=== PATIENT | female | born 1970 | race Caucasian/White ===

== ENCOUNTER → 2021-05-17 14:00 | Outpatient (CLI) | payer BC, SELFPAY ==
[2021-05-17 15:27] LABS: Absolute Lymphocyte Count 1.26 X10^3/uL (0.83-4.51); Absolute Neutrophil Count 3.7 X10^3/uL (2.0-7.7); Basophil# 0.03 X10^3/uL; Basophil% 0.5 % (0-1); Eosinophils% 1.8 % (0-5); Hematocrit 38.8 % (37-47); Hemoglobin 12.6 g/dL (12.0-15.0); Lymphocyte # 1.26 X10^3/ul (0.83-4.51); Mean Corp Hgb Conc 32.5 g/dL (32-36); Mean Corpuscular Hgb 31.2 pg (27.0-32.0); Mean Platelet Vol. 10.4 fl (6.2-12.0); Monocyte# 0.37 X10^3/uL; Monocyte% 6.7 % (0-10); NRBC Flagged by Analyzer 0 % (0-5); Neutrophil # 3.71 X10^3/uL (2.7-7.7); Neutrophil % 67.6 % (47-70); Platelet Count 297 K/mm3 (150-450); RBC Distribution Width SD 46.2 fl (35.1-43.9); Red Blood Count 4.04 M/mm3 (4.2-5.4); White Blood Count 5.5 K/mm3 (4.4-11.0)
[2021-05-17 16:35] LABS: AST(SGOT) 21 U/L (15-37); Alanine Aminotransfer ALT/SGPT 21 U/L (13-56); Albumin, Serum 3.7 g/dL (3.2-5.0); Alkaline Phosphatase 54 U/L (45-117); Anion Gap 8 (5-15); BUN 10 mg/dL (7-18); BUN/Creat Ratio 12.5 RATIO (10-20); Bilirubin, Direct 0.08 mg/dL (0.00-0.30); Calcium,Total 8.5 mg/dL (8.5-10.1); Chloride 104 mmol/L (98-107); EST Glomerular Filtration Rate 81 mL/min (>60); Est Glom Filt Rate - Afr Amer 98 mL/min (>60); Globulin 3.2 g/dL (2.2-4.2); Glucose 123 mg/dL (74-106); Potassium 3.5 mmol/L (3.5-5.1); Protein, Total 6.9 g/dL (6.4-8.2); Sodium Level 139 mmol/L (136-145)
[2021-05-18 09:31] LABS: Hepatitis B Surface Antibody Non-Reactive; Hepatitis B Surface Antigen Non-Reactive (Nonreactive); Hepatitis C Antibody Non-Reactive (Nonreactive)
[2021-05-20 03:07] LABS: QNTFERON TB Mitogen Value > 10.00 IU/mL (.); QNTFERON TB Nil Value 0 IU/mL (.); QNTFERON TB1+ Ag Value 0 IU/mL (.); QNTFERON TB2+ Ag Value 0 IU/mL (.)
[2021-05-20 10:40] LABS: Hepatitis B Core Ab Total Negative (Negative); QNTIFERON TB Positive Criteria Negative (Negative)
== END ==
PROVIDERS: PCP Family Medicine; Referring Provider Dermatology; Visit Provider Dermatology
DX: L71.0 Perioral dermatitis (principal); L40.0 Psoriasis vulgaris
CPT/HCPCS: 36415; 80048; 80076; 85025; 86480; 86704; 86706; 86803; 87340

== ENCOUNTER → 2022-10-19 | Outpatient (CLI) | payer BC, SELFPAY ==
[2022-10-23 08:07] LABS: QNTFERON TB Mitogen Value > 10.00 IU/mL (.); QNTFERON TB Nil Value 0.01 IU/mL (.); QNTFERON TB1+ Ag Value 0.01 IU/mL (.); QNTFERON TB2+ Ag Value 0 IU/mL (.)
[2022-10-23 11:19] LABS: QNTIFERON TB Positive Criteria Negative (Negative)
== END | disposition home or self-care (01) ==
LOC: LABSPEC 09:40
PROVIDERS: PCP Family Medicine; Visit Provider Dermatology
DX: L40.0 Psoriasis vulgaris (principal); L40.59 Other psoriatic arthropathy; L71.0 Perioral dermatitis; Z79.899 Other long term (current) drug therapy
CPT/HCPCS: 36415; 86480

== ENCOUNTER → 2023-01-03 | Outpatient (CLI) | payer BC, SELFPAY ==
--- NOTE | 2023-01-03 07:50 | BI_ITS ---
MAMMOGRAPHY - BILATERAL SCREENING REASON FOR EXAM: Female, 52 years old. Routine annual screening examination. PERTINENT HISTORY: Non-contributory. TECHNIQUE: Digital bilateral breast chuy (3D mammographic acquisition) in the CC and MLO projections. 2-D mediolateral oblique (MLO) and craniocaudad (CC) views of both breasts were obtained. CAD: Full Field Digital Mammography with Computer Added Detection was performed. COMPARISON: Comparison is made with prior outside examination 11/08/2021 and 07/29/2020. FINDINGS: Breast Composition: There are scattered areas of fibroglandular density. There are no dominant masses or suspicious calcifications. No other significant abnormalities are identified. There has been no significant change since the prior study. BI/SCRN MAMM (CAD)W/CHUY BILAT IMPRESSION: Stable bilateral screening mammogram. Yearly follow-up mammogram recommended. (A) ASSESSMENT CATEGORY: BIRADS Category 1: Negative. A letter regarding these results will be sent to the patient by the facility within 30 days. Approximately 10% of breast cancers are not detected by mammography. A normal mammogram should not delay biopsy of a clinically suspicious abnormality. [id number] Electronically Signed: Ernst Gamino MD at 14:51 EST ,
[2023-01-03 08:28] LABS: Absolute Neutrophil Count 2.1 X10^3/uL (2.0-7.7); Basophil# 0.03 X10^3/uL; Basophil% 0.8 % (0-1); Eosinophil# 0.16 X10^3/uL; Eosinophils% 4.4 % (0-5); Hematocrit 39.7 % (37-47); Hemoglobin 13.1 g/dL (12.0-15.0); Lymphocyte % 24.7 % (19-41); Mean Corpuscular Volume 97.1 fL (81-99); Mean Platelet Vol. 10.2 fl (6.2-12.0); Monocyte# 0.48 X10^3/uL; Monocyte% 13.2 % (0-10); NRBC Flagged by Analyzer 0 % (0-5); Neutrophil # 2.06 X10^3/uL (2.7-7.7); Neutrophil % 56.6 % (47-70); Platelet Count 280 K/mm3 (150-450); RBC Distribution Width CV 13.4 % (11.6-14.6); RBC Distribution Width SD 47.8 fl (35.1-43.9); Red Blood Count 4.09 M/mm3 (4.2-5.4); White Blood Count 3.6 K/mm3 (4.4-11.0)
[2023-01-03 08:49] LABS: Hemoglobin A1c 4.8 % (3.8-5.6)
[2023-01-03 09:00] LABS: AST(SGOT) 22 U/L (15-37); Alanine Aminotransfer ALT/SGPT 26 U/L (13-56); Albumin, Serum 3.5 g/dL (3.2-5.0); Alkaline Phosphatase 45 U/L (45-117); Anion Gap 5 (5-15); BUN 14 mg/dL (7-18); BUN/Creat Ratio 21.1 RATIO (10-20); Calcium,Total 8.8 mg/dL (8.5-10.1); Chloride 107 mmol/L (98-107); Creatinine, Serum 0.66 mg/dL (0.55-1.02); EST Glomerular Filtration Rate 100 mL/min (>60); Est Glom Filt Rate - Afr Amer 121 mL/min (>60); Globulin 3.4 g/dL (2.2-4.2); Glucose 92 mg/dL (74-106); Potassium 4.1 mmol/L (3.5-5.1); Protein, Total 6.9 g/dL (6.4-8.2); Sodium Level 141 mmol/L (136-145)
[2023-01-05 17:18] LABS: Vitamin D 1,25-Dihydroxy 30.5 pg/mL (24.8-81.5)
== END | disposition home or self-care (01) ==
PROVIDERS: PCP Family Medicine; Referring Provider Registered Nurse; Visit Provider Registered Nurse
DX: Z12.31 Encounter for screening mammogram for malignant neoplasm of breast (principal); Z01.419 Encounter for gynecological examination (general) (routine) without abnormal findings
CPT/HCPCS: 36415; 77063; 77067; 80053; 82652; 83036; 85025

== ENCOUNTER 2023-02-22 10:20 | Day surgery (SDC) | payer BC, SELFPAY ==
[2023-02-22] VITALS (7 sets, daily range): BP systolic 93–109; BP diastolic 46–85; PULSE 72–85; RESP 14–18; TEMP 36.6–36.8; O2SAT 98–99; BMI 25.2
[2023-02-22] MEDS: Lactated Ringers 1,000 ML 15 ML IV (10:38)
--- NOTE | 2023-02-22 11:28 | HP.PCM_ITS ---
[facility] - General General Date of Admission: 02/22/23 Date of Service: 02/22/23 Chief Complaint: Screening colonoscopy HPI Narrative KEREN WORLEY, is a 52 F who presents today for screening colonoscopy. She denies abdominal pain. She denies any nausea, vomiting or diarrhea. She had a colonoscopy approximately 10 years ago. She is not having any weakness. She has not had any trouble with her heart or lungs that she knows of. She does not take any blood thinners. Overall she is in very good health. She does have family history of colonic polyps in multiple family members. [facility] Medical History (Updated 02/19/23 @ 13:15 by Wendy Jean) Alcohol use Anemia Arthritis Easy bruising History of abnormal mammogram History of IBS Low iron Non-smoker PONV (postoperative nausea and vomiting) Psoriatic arthritis Wears contact lenses Home Medications guselkumab 100 mg/mL subcutaneous auto-injector (Tremfya) 100 mg subcut Q8W 12/27/22 [History Last Taken Unknown] cholecalciferol (vitamin D3) 50 mcg (2,000 unit) capsule 50 mcg PO DAILY 01/02/23 [History Last Taken Unknown] multivitamin 1 tab PO DAILY 01/02/23 [History Last Taken Unknown] lactobacillus combination no.4 3 billion cell capsule (Probiotic) 3,000 mmu cells PO DAILY 02/19/23 [History Last Taken Unknown] Allergy/AdvReac Type Severity Reaction Status Date / Time sulfamethoxazole Allergy rash Verified 02/22/23 10:32 [From Bactrim] trimethoprim [From Bactrim] Allergy rash Verified 02/22/23 10:32 Family History Grandmother CVA (cerebral vascular accident) Colon neoplasm Father Hyperlipidemia Grandfather Hyperlipidemia Mother Colon polyp Thyroid disorder Surgical History H/O tubal ligation History of endometrial ablation History of tonsillectomy Hx of section Hx of colonoscopy Hx of dilation and curettage Social History adopted: No household members: spouse and family current occupational status: employed current occupation: [employer] current occupational exposures/hazards: No pets and animals: Yes history of recent travel: No sexually active: Yes Smoking Status: Never smoker second hand exposure: No alcohol intake: current alcohol intake frequency: a few times a week details: weekends ROS Review of Systems ROS Unobtainable: other Constitutional Constitutional: Denies fatigue, fever(s), poor appetite, weight gain or weight loss ENT HEENT: Denies mouth lesions Cardiovascular Cardiovascular: Denies abdominal bloating, abdominal edema or abdominal pain Respiratory/Chest Respiratory/Chest: Denies change in mental status, change in phlegm color, chest congestion or chest tightness Gastrointestinal Gastrointestinal: Denies belching, bloating, change in bowel habits, change in stool character, chewing difficulty, coffee ground emesis, constipation, cramping, diarrhea, dyspepsia, dysphagia, early satiety, excessive flatus, fecal incontinence, heartburn, hematemesis, hematochezia, hemorrhoids, loose stools, melena, nausea, odynophagia, rectal bleeding, tenesmus, vomiting or weight changes Genitourinary Genitourinary: Denies abdominal discomfort, burning urination or itching Musculoskeletal Musculoskeletal: Reports as per HPI; Denies muscle weakness or myalgias Integumentary Integumentary: Denies jaundice Neurologic Neurologic: Denies lack of coordination or weakness Psychiatric Psychiatric: Denies confusion, depression, memory loss, mood swings, paranoia or suicidal ideation Endocrine Endocrinology: Denies systems reviewed and no addt'l complaints, except as documented Hematologic/Lymphatic Hematologic/Lymphatic: Denies anemia, easy bleeding, easy bruising or lymphadenopathy Allergic/Immunologic Allergic/Immunologic: Denies systems reviewed and no addt'l complaints, except as documented Vital Signs Vital Signs Vital Signs: 02/22/23 10:32 02/22/23 10:32 Temperature 98.3 F Temperature Source Temporal Pulse Rate 85 Respiratory Rate 18 Respiratory Pattern Normal Blood Pressure 106/74 Blood Pressure Mean 84 Blood Pressure Source Monitor Blood Pressure Position Sitting Blood Pressure Location Left Arm Pulse Ox 98 Oxygen Delivery Method Room Air Weight Weight: 160 lb 14.999 oz Body Mass Index (BMI) 25.2 Physical Exam Const alert General Appearance: cooperative Orientation / Consciousness: oriented to person HEENT hearing grossly normal bilaterally Head and Scalp: normal to inspection Face and Sinus: face symmetric Nose: external nose normal Mouth: oral and palatal mucosa normal Eyes conjunctivae normal General Eye: normal appearance of both eyes Neck full ROM General: normal visual inspection Lymph Lymphatic: no lymphadenopathy noted Chest inspection of chest normal and palpation of chest normal Chest: symmetrical chest wall rise Resp normal respiratory effort Effort and Inspection: able to speak in complete sentences Cardio regular rate GI non-distended Percussion: normal to percussion Rectal Exam: deferred Neuro Speech: speech normal Gait (Neuro): normal gait Assessment & Plan Assessment/Plan (1) Encounter for screening for malignant neoplasm of colon: PLAN: She was explained alternatives, risk, benefits including outstanding bleeding, infection, sepsis, perforation, need for emergent urgent . She have an ASA of 1.
--- NOTE | 2023-02-22 12:21 | OP.CCLET_ITS ---
02/22/2023 Isra Torres Re : Colonoscopy procedure for Jessi Brenner Dear Melissa This procedure was performed on February. My impressions and recommendations are as follows: Impressions : - The entire examined colon is normal. - No specimens collected. Recommendations : - Discharge patient to home. - Resume previous diet. - Continue present medications. - Repeat colonoscopy in 10 years for screening purposes. My findings are described in the full procedure note, which is enclosed. If I can be of further assistance, please feel free to contact me at . Sincerely, Jose Rapp, 02/22/2023 12:20:47 PM This report has been signed electronically.
--- NOTE | 2023-02-22 12:21 | OP.COLON_ITS ---
Patient Name: Jessi Brenner Procedure Date: 02/22/2023 11:51 AM Date of : 1970 Age: 52 Procedure: Colonoscopy Indications: Screening for colorectal malignant neoplasm Providers: Jose Rapp DO Medicines: Monitored Anesthesia Care Patient Profile: This is a 52 year old female. Refer to note in patient chart for documentation of history and physical. Last Colonoscopy: date unknown. Unable to locate last colonoscopy report. Complications: No immediate complications. Procedure: Pre-Anesthesia Assessment: - Prior to the procedure, a History and Physical was performed, and patient medications and allergies were reviewed. The risks and benefits of the procedure and the sedation options and risks were discussed with the patient. All questions were answered and informed consent was obtained. Patient identification and proposed procedure were verified by the physician in the pre-procedure area. Mental Status Examination: alert and oriented. Airway Examination: normal oropharyngeal airway and neck mobility. Respiratory Examination: clear to auscultation. CV Examination: normal. Prophylactic Antibiotics: The patient does not require prophylactic antibiotics. Prior Anticoagulants: The patient has taken no previous anticoagulant or antiplatelet agents. After reviewing the risks and benefits, the patient was deemed in satisfactory condition to undergo the procedure. The anesthesia plan was to use monitored anesthesia care (MAC). Immediately prior to administration of medications, the patient was re-assessed for adequacy to receive sedatives. The heart rate, respiratory rate, oxygen saturations, blood pressure, adequacy of pulmonary ventilation, and response to care were monitored throughout the procedure. The physical status of the patient was re-assessed after the procedure. After I obtained informed consent, the scope was passed under direct vision. Throughout the procedure, the patient's blood pressure, pulse, and oxygen saturations were monitored continuously. The pediatric colonoscope was introduced through the anus and advanced to the cecum, identified by appendiceal orifice and ileocecal valve. The colonoscopy was performed without difficulty. The patient tolerated the procedure well. The quality of the bowel preparation was good. Scope In: 12:00:17 PM Scope Withdrawal Time 0 hours 8 minutes 29 seconds Scope Out: 12:15:03 PM Total Procedure Duration Time 0 hours 14 minutes 46 seconds Findings: The perianal and digital rectal examinations were normal. The colon (entire examined portion) appeared normal. No additional abnormalities were found on retroflexion. Impression: - The entire examined colon is normal. - No specimens collected. Recommendation: - Discharge patient to home. - Resume previous diet. - Continue present medications. - Repeat colonoscopy in 10 years for screening purposes. Procedure Code(s): --- Professional --- G0121, Colorectal cancer screening; colonoscopy on individual not meeting criteria for high risk CPT copyright 2017 [employer]. All rights reserved. The codes documented in this report are preliminary and upon food service employee review may be revised to meet current compliance requirements. Jose Rapp DO 02/22/2023 12:20:47 PM This report has been signed electronically. Number of Addenda: 0 Note Initiated On: 02/22/2023 11:51 AM
== END 2023-02-22 12:48 | disposition home or self-care (01) ==
LOC: EN 10:23 → AC 10:51
PROVIDERS: PCP Family Medicine; Referring Provider Family Medicine; Visit Provider Internal Medicine Gastroenterology
PROC: 0DJD8ZZ Inspection of Lower Intestinal Tract, Via Natural or Artificial Opening Endoscopic (ICD-10-PCS; CPT 45378; principal; 2023-02-22 11:25)
DX: Z12.11 Encounter for screening for malignant neoplasm of colon (principal); L40.9 Psoriasis, unspecified; Z79.899 Other long term (current) drug therapy
CPT/HCPCS: G0121; J7120; J2405

== ENCOUNTER → 2024-01-11 | Outpatient (CLI) | payer OTHER, SELFPAY ==
--- NOTE | 2024-01-11 08:22 | BI_ITS ---
MAMMOGRAPHY - BILATERAL SCREENING REASON FOR EXAM: Female, 53 years old. Routine annual screening examination. PERTINENT HISTORY: Non-contributory. TECHNIQUE: Digital bilateral breast chuy (3D mammographic acquisition) in the CC and MLO projections. 2-D mediolateral oblique (MLO) and craniocaudad (CC) views of both breasts were obtained. CAD: Full Field Digital Mammography with Computer Added Detection was performed. COMPARISON: Comparison is made with prior study dated January 03, 2023. FINDINGS: Breast Composition: There are scattered areas of fibroglandular density. There are no dominant masses or suspicious calcifications. No other significant abnormalities are identified. There has been no significant change since the prior study. BI/SCRN MAMM (CAD)W/CHUY BILAT IMPRESSION: Stable bilateral screening mammogram. Yearly follow-up mammogram recommended. (A) ASSESSMENT CATEGORY: BIRADS Category 1: Negative. A letter regarding these results will be sent to the patient by the facility within 30 days. Approximately 10% of breast cancers are not detected by mammography. A normal mammogram should not delay biopsy of a clinically suspicious abnormality. [id number] Electronically Signed: Ernst Gamino MD at 9:11 EST ,
--- OUTSIDE RECORDS SUMMARY | 2024-01-11 08:24 | XMS RPT_ITS | CCD ---
Author Name Unknown Address [address] [place] [address] Organization [facility] Care Team Providers Care [employer] Name Role Phone ISAC IYER Primary Care Unavailable No, Physician Primary Care Provider Audreyabl e MILENA FREIRE Referring Unavaila ble NO, PHYSICIAN Primary Care Unavailable MILENA FREIRE Admitting Unavaila ble NO, PHYSICIAN Primary Care Unavailable MILENA FREIRE Attending Unavaila ble Allergies Allergy Classification Reported Allergen(s) Allergy Type Date of Onset Reaction(s) Facility (1 source) ALLERGIES NOT ON FILE; Translations: [ALLERGIES NOT ON FILE] Propensity to adverse reactions (disorder) [facility] (2 sources) Sulfamethoxazole / Trimethoprim; Translations: [SULFAMETHOXAZOLE-TR IMETHOPRIM] Drug Allergy 01-07-[address] [place] [address] Medications Current Medications Medication Drug Class(es) Dates Sig (Normalized) Sig (Original) predniSONE 20 mg oral tablet (1 source) Start: 01-07-2024 predniSONE (DELTASONE) 20 MG tablet Take 2 tablets once daily x 5 days with food . 10 tablet 0 01/07/2024 Active Problems Problem Classification Problem Date Documented Da te Episodic/Chronic Other connective tissue disease (1 source) Pain in right hand; Translations: [Pain in right hand] 01-07-2024 Episodic Other connective tissue disease (1 source) Ganglion cyst; Translations: [Ganglion, unspecified site] 01-07-2024 Episodic Other connective tissue disease (2 sources) Pain in right hand; Translations: [Pain in right hand] Onset: 01-07-2024 Episodic Other connective tissue disease (2 sources) Ganglion, unspecified site; Translations: [Ganglion, unspecified site] Onset: 01-07-2024 Episodic Other inflammatory condition of skin (2 sources) Psoriasis vulgaris; Translations: [Psoriasis vulgaris] Onset: 11-01-2023 Chronic Other non-traumatic joint disorders (1 source) Pain of right wrist; Translations: [Pain in right wrist] 01-07-2024 Episodic Other non-traumatic joint disorders (2 sources) Pain in right wrist; Translations: [Pain in right wrist] Onset: 01-07-2024 Episodic Results Test Name Value Interpretation Reference Range Facil ity Vital Signs Date Time Vital Sign Value Performing Clinician David lity 01-07-2024 17:36-0500 Body height 170.2 cm Milena Lamport PA -C Work Phone: [facility] 01-07-2024 17:36-0500 Body mass index (BMI) [Ratio] 25.06 kg/m2 Milena Lamport PA-C Work Phone: [facility] 01-07-2024 17:36-0500 Body temperature 98.6 [degF] Milena Lamport PA -C Work Phone: [facility] 01-07-2024 17:36-0500 Body weight 72.58 kg Milena Lamport PA -C Work Phone: [facility] 01-07-2024 17:36-0500 Diastolic blood pressure 73 mm[Hg] Milena Lamport PA-C Work Phone: [facility] 01-07-2024 17:36-0500 Heart rate 86 /min Milena Lamport PA -C Work Phone: [facility] 01-07-2024 17:36-0500 Respiratory rate 16 /min Milena Lamport PA -C Work Phone: [facility] 01-07-2024 17:36-0500 SaO2% (BldA) [Mass fraction] 98 % Milena Lamport PA-C Work Phone: [facility] 01-07-2024 17:36-0500 Systolic blood pressure 112 mm[Hg] Milena Lampor t PA-C Work Phone: [facility] Encounters Encounter Date Encounter Type Care Provider Facility Start: 01-07-2024 End: 01-07-2024 ambulatory PHYSICIAN NO [facility] Start: 01-07-2024 End: 01-07-2024 Office outpatient new 30 minutes Milena Freire PA-C Work Phone: [facility] [place] Procedures Date Procedure Procedure Detail Performing Clinician Start: 11-01-2023 HEPATITIS B CORE ANT IBODY, TOTAL ISAC STENCEL Start: 11-01-2023 HEPATITIS B SURFACE ANTIBODY ISAC STENCEL Start: 11-01-2023 HEPATITIS C ANTIBODY STEVE DRIVER STENCEL Start: 11-01-2023 T-SPOT TB ISAC YOO Plan of Treatment Date Care Activity Detail Author Start: 07-07-2024 End: 07-07-2024 Patient encounter procedure 07/07/2024 3:00 PM EDT Office Visit [facility] [address] [place] [address] Maricruz Pruitt MD [address] [address] [facility] Start: 07-20-2023 COVID-19 Vaccine ( season) COVID-19 Vaccine ( season) [facility] Start: 07-20-2023 Influenza vaccination Sequential Influenza Vaccine (#1) [facility] Start: 2022 Administration of herpes zoster vaccine Zoster Vaccines (1 of 2) [facility] Start: 2022 Screening for malignant neoplasm of colon Flexible sigmoidoscopy [facility] Start: 2012 Screening for malignant neoplasm of breast Mammogram [facility] Start: 1993 Screening for malignant neoplasm of cervix Pap Smear [facility] Start: 1990 Hepatitis C screening Hepatitis C Screening [facility] Start: 1987 HIV screening HIV Screening [facility] Start: 1984 Depression screening using PHQ-9 (Patient Health Questionnaire 9) score Depression Screening (PHQ-2/9) [facility] Start: 1975 History and physical examination, annual for health maintenance Wellness Visit [facility] Start: 1972 Screening for malignant neoplasm of colon [facility] Start: 1972 Tetanus vaccination Tetanus: Every 10yrs [facility] Payers Date Payer Category Payer Unknown [facility] [id number] 2023-Present [address] [place] [id number] [id number] 2023 Unknown [id number] 2019 Unknown [id number] 1972 Unknown [id number] 1972 Unknown [id number] 1972 Unknown [id number] Social History Date Type Detail Facility Start: 01-07-2024 Tobacco smoking status NHIS Never sm oked tobacco [facility] Start: 01-07-2024 Tobacco use and exposure Smokeless t obacco non-user [facility] Start: 01-07-2024 Alcohol intake Current drinke r of alcohol (finding) [facility] Start: 01-07-2024 Alcohol Comment social [facility] Start: 1970 Sex Assigned At Not on file O hiOReal Start: 01-07-2024 Gender identity Identifies as female gender (finding) [facility] Start: 01-07-2024 Sexual orientation Heterosexual (fin jena) [facility] Instructions 01-07-2024 Patient InstructionsAttachments Note Date & Type Note Facility 01-07-2024 Instructions Milena Freire PA-C - 01/07/2024 6:27 PM EST Iris, Ganglion Cyst R wrist Referral to Ortho RICE Cock up splint RUE - Use splint as directed Restrictions x 10 days - no using/typing, bending/flexing/extending R wrist to allow inflammation to decrease. Work note provided Xray R wrist - no fracture or mass; final read pending Radiology No nsaids or asa. Tylenol Arthritis is fine if you need it for pain with prednisone. Take in am with food. Any worsening swelling, pain--return here for recheck; If you experience pain out of proportion to appearance, the injured location/ extremity turns white/blue, worsening numbness/tingling, cannot move extremity, nausea/vomiting, fever, or any other concerns--ER! The following attachments cannot be sent through Care Everywhere.Ganglions (Romansh)documented in this encounter [facility] History of Present illness Narrative 01-07-2024 Milena Freire PA-C - 01/07/2024 5:46 PM EST Note Date & Type Note Facility 01-07-2024 History of Presen t illness Narrative Images from the original note were not included. Patient Name: [facility] Location: [facility] [address] Date Of : Date Of Visit: 1970 01/07/2024 MRN# Provider: [id number] Milena Freire PA-C Chief Complaint Patient presents with Hand Pain Noticed a bump on the top of her right hand x1-2 weeks, getting more painful but not bigger. NKI Assessment & Plan 1. Ganglion cyst Ambulatory referral to Orthopedics 2. Right wrist pain XR Wrist Right 3+ Views (Standard) Ambulatory referral to Orthopedics Wrist splint - Cock-up 3. Right hand pain XR Wrist Right 3+ Views (Standard) Ambulatory referral to Orthopedics Wrist splint - Cock-up No follow-ups on file. Medical Decision Making Ganglion Cyst R wrist Referral to Ortho RICE Cock up splint RUE - Use splint as directed Restrictions x 10 days - no using/typing, bending/flexing/extending R wrist to allow inflammation to decrease. Work note provided Xray R wrist - no fracture or mass; final read pending Radiology No nsaids or asa. Tylenol Arthritis is fine if you need it for pain with prednisone. Take in am with food. Any worsening swelling, pain--return here for recheck; If you experience pain out of proportion to appearance, the injured location/ extremity turns white/blue, worsening numbness/tingling, cannot move extremity, nausea/vomiting, fever, or any other concerns--ER! Additional Clinical Comments X-ray Documentation: I have personally reviewed the images. My impression is no evidence of mass or fracture. Radiology over-read pending. Subjective 53 y.o. female presents with Hand Pain (Noticed a bump on the top of her right hand x1-2 weeks, getting more painful but not bigger. NKI) HPI Review Of Systems Review of Systems Constitutional: Positive for activity change. Negative for chills and fever. HENT: Negative for facial swelling, sore throat and trouble swallowing. Eyes: Negative for pain, discharge and redness. Respiratory: Negative for cough and shortness of breath. Cardiovascular: Negative for chest pain, palpitations and leg swelling. Gastrointestinal: Negative for abdominal pain, nausea and vomiting. Musculoskeletal: Negative for arthralgias, back pain, gait problem, joint swelling, myalgias, neck pain and neck stiffness. Skin: Positive for wound. Negative for color change, pallor and rash. Neurological: Negative for seizures, syncope, facial asymmetry, speech difficulty, weakness, light-headedness, numbness and headaches. Hematological: Negative for adenopathy. Does not bruise/bleed easily. Psychiatric/Behavioral: Negative for confusion. Medical History Past Medical History: Diagnosis Date Psoriatic arthritis (HCC) Past Surgical History: Procedure Laterality Date SECTION, LOW TRANSVERSE TONSILLECTOMY TUBAL LIGATION There is no problem list on file for this patient. Social History Social History Tobacco Use Smoking status: Never Smokeless tobacco: Never Vaping Use Vaping Use: Never used Substance Use Topics Alcohol use: Yes Comment: social Drug use: Never Family History History reviewed. No pertinent family history. Objective Physical Exam BP 112/73 (BP Location: Left arm, Patient Position: Sitting, BP Cuff Size: Adult) Pulse 86 Temp 98.6 F (37 C) Resp 16 Ht 5' 7 Wt 72.6 kg (160 lb) SpO2 98% BMI 25.06 kg/m Vision/Hearing Exam:No results found. Physical Exam Vitals and nursing note reviewed. Constitutional: General: She is not in acute distress. Appearance: Normal appearance. She is not ill-appearing, toxic-appearing or diaphoretic. HENT: Head: Normocephalic and atraumatic. Right Ear: External ear normal. Left Ear: External ear normal. Nose: Septal deviation present. No congestion. Mouth/Throat: Mouth: Mucous membranes are moist. Pharynx: No oropharyngeal exudate or posterior oropharyngeal erythema. Eyes: General: No scleral icterus. Right eye: No discharge. Left eye: No discharge. Extraocular Movements: Extraocular movements intact. Conjunctiva/sclera: Conjunctivae normal. Cardiovascular: Rate and Rhythm: Normal rate and regular rhythm. Pulses: Normal pulses. Pulmonary: Effort: Pulmonary effort is normal. No respiratory distress. Musculoskeletal: General: Swelling, tenderness and deformity present. No signs of injury. Normal range of motion. Arms: Cervical back: Normal range of motion and neck supple. No rigidity. No muscular tenderness. Right lower leg: No edema. Left lower leg: No edema. Comments: R wrist -- Red = location of hand ganglion cyst Noted small, mobile, tender cystic lesion located mid dorsal aspect of R wrist. Painful and limited ROM of R wrist in all directions due to swelling. No joint warmth, redness, pallor, pain. Distal nvs status intact. Cap refill < 3 secs. 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 No pain out of proportion to exam, crepitus, gangrene, petechaie. The RUE otherwise appears normal and has pain free FROM. Lymphadenopathy: Cervical: No cervical adenopathy. Skin: General: Skin is warm and dry. Capillary Refill: Capillary refill takes 2 to 3 seconds. Coloration: Skin is not jaundiced or pale. Findings: No bruising, erythema, lesion or rash. Neurological: Mental Status: She is alert and oriented to person, place, and time. Motor: No weakness. Gait: Gait normal. Psychiatric: Mood and Affect: Mood normal. Behavior: Behavior normal. Thought Content: Thought content normal. Judgment: Judgment normal. Procedure Notes Procedures Results No results found for this or any previous visit (from the past 168 hour(s)). No orders to display Orders Placed This Visit Orders Placed This Encounter Procedures Wrist splint - Cock-up XR Wrist Right 3+ Views (Standard) Ambulatory referral to Orthopedics Medication List At End Of Visit Current Outpatient Medications Medication Sig Dispense Refill predniSONE (DELTASONE) 20 MG tablet Take 2 tablets once daily x 5 days with food . 10 tablet 0 No current facility-administered medications for this visit. Patient Instructions Iris Ganglion Cyst R wrist Referral to Ortho RICE Cock up splint RUE - Use splint as directed Restrictions x 10 days - no using/typing, bending/flexing/extending R wrist to allow inflammation to decrease. Work note provided Xray R wrist - no fracture or mass; final read pending Radiology No nsaids or asa. Tylenol Arthritis is fine if you need it for pain with prednisone. Take in am with food. Any worsening swelling, pain--return here for recheck; If you experience pain out of proportion to appearance, the injured location/ extremity turns white/blue, worsening numbness/tingling, cannot move extremity, nausea/vomiting, fever, or any other concerns--ER! documented in this encounter [facility] Evaluation note Note Date & Type Note Facility documented in this encounter [facility] Summary Purpose Family History No Family History Records FoundNo Family History Records FoundNo Family History Records FoundNo Family History Records FoundNo Family History Records Found Advance Directives No Advanced Directives Records FoundNo Advanced Directives Records FoundNo Advanced Directives Records FoundNo Advanced Directives Records FoundNo Advanced Directives Records Found Reason for Referral Specialty Diagnoses / Procedures Referred By Yasmin mora Referred To Contact Orthopedic Surgery Diagnoses Right wrist pain Right hand pain Ganglion cyst Milena Freire PA-C [address] [place] [address] Dr Stauffer [address] [place] [address] Gabino Mcmullen MD [facility] [place] [address] Referral ID Status Reason Start Date Expiration Date Visits Requested Visits Authorized [id number] Authorized Specialty Services Required/Pat ient's Best Interest 01/14/2024 01/13/2025 1 1 Additional Source Comments INFORMATION SOURCE (unrecogn ized section and content) DATE CREATED AUTHOR AUTHOR'S ORGANIZ ATION 07/16/2021 [facility] DATE CREATED AUTHOR AUTHOR'S ORGANIZ ATION 06/11/2022 [facility] DATE CREATED AUTHOR AUTHOR'S ORGANIZ ATION 11/05/2023 [facility] DATE CREATED AUTHOR AUTHOR'S ORGANIZ ATION 01/08/2024 [facility] Reason for Visit (unrecogniz ed section and content) Care Teams (unrecognized sec tion and content) FOR RECORDS PERTAINING TO PATIENTS WHO ARE OR HAVE BEEN ENROLLED IN A CHEMICAL DEPENDENCY/SUBSTANCEABUSE PROGRAM, SOME INFORMATION MAY BE OMITTED. This clinical summary was aggregated from multiple sources. Caution should be exercised in using it in the provision of clinical care. This summary normalizes information from multiple sources, and as a consequence, information in this document may materially change the coding, format and clinical context of patient data. In addition, data may be omitted in some cases. CLINICAL DECISIONS SHOULD BE BASED ON THE PRIMARY CLINICAL RECORDS. [employer] [facility]. provides no warranty or guarantee of the accuracy or completeness of information in this document.
[2024-01-18 16:09] LABS: HPV APTIMA, High Risk Negative (Negative)
[2024-01-18 18:35] LABS: HPV Reflexed? YES, CHARGE PATIENT
== END | disposition home or self-care (01) ==
PROVIDERS: PCP Family Medicine; Referring Provider Registered Nurse; Visit Provider Registered Nurse
DX: Z12.31 Encounter for screening mammogram for malignant neoplasm of breast (principal)
CPT/HCPCS: 77063; 77067; 87624; 88175; G0145

== ENCOUNTER → 2025-01-15 | Outpatient (CLI) | payer OTHER, SELFPAY ==
--- NOTE | 2025-01-15 08:07 | BI_ITS ---
PROCEDURE: SCRN MAMM (CAD)W/CHUY BILAT REASON FOR EXAM: F, Age 54 y/o, no family history. Annual mammographic follow-up. TECHNIQUE: Bilateral screening digital breast tomosynthesis with 2D and 3D images. Computer aided detection. COMPARISON: Prior exam(s) dating back to January 11, 2024.. FINDINGS: There are scattered areas of fibroglandular density. Stable examination. No suspicious masses, areas of developing architectural distortion, or suspicious calcifications. BI/SCRN MAMM (CAD)W/CHUY BILAT IMPRESSION: BI-RADS 1: NEGATIVE. RECOMMEND ANNUAL MAMMOGRAPHIC SCREENING. Follow-up code: Routine Follow-up The patient will be notified of the results by letter. Reading Location: [id number]
== END | disposition home or self-care (01) ==
LOC: OPBI 07:48
PROVIDERS: PCP Family Medicine; Referring Provider Registered Nurse; Visit Provider Registered Nurse
DX: Z12.31 Encounter for screening mammogram for malignant neoplasm of breast (principal)
CPT/HCPCS: 77063; 77067